=== PATIENT | male | born 1940 | race Two or more races ===

== ENCOUNTER 2017-05-20 11:16 | Day surgery (SDC) | payer OTHER ==
[~2017-05-20 11:16] MED LIST: Acetaminophen TAB* 325 MG PO PRN; Buffered Lidocaine 0.9% SYRIN* 5 ML/SYR SYRINGE INTRADERM ONE
[2017-05-20] MEDS ORDERED: Midazolam* 1 MG/ML 2 ML VIAL (2 MG) ONE (11:41)
[2017-05-20] MEDS ORDERED: fentaNYL* 50 MCG/ML 2 ML VIAL (100 MCG VIAL) ONE (11:41)
[2017-05-20 12:56] VITALS: BP 144/84
[2017-05-20] MEDS ORDERED: Neomycin/Polymy/Dex OPHTH.OIN* 3.5 GM ONE (13:58)
[2017-05-20] MEDS ORDERED: Phenylephrine 2.5% OPTH.SOL* 2 ML BTL ONE (13:58)
[2017-05-20] MEDS ORDERED: Tropicamide 1% OPTH.SOL* BTL ONE (13:58)
[2017-05-20] MEDS ORDERED: Tetracaine 0.5% OPTH.SOL 4 ML* 1 DROP BTL ONE (13:58)
[2017-05-20] MEDS ORDERED: Lidocaine 1% MPF* 2 ML VIAL ONE (13:58)
[2017-05-20] MEDS ORDERED: Cyclopentolate 1% OPTH.SOL* 2 ML BTL ONE (13:58)
[2017-05-20] MEDS ORDERED: Ketorolac 0.5% OPHTH (NF) 0.5 % 5 ML BTL ONE (13:59)
--- NOTE | 2017-05-21 03:50 | OP ---
DATE OF OPERATION: 05/20/17 - [facility] DATE OF : 44 SURGEON: Wesley Quinonez MD. SERVICE RIG OPERATOR: None. ANESTHESIA: Topical with intravenous sedation. PRE-OP DIAGNOSIS: Cataract with astigmatism and glaucoma, left eye. POST-OP DIAGNOSIS: Cataract with astigmatism and glaucoma, left eye. OPERATIVE PROCEDURE: Phacoemulsification cataract extraction with posterior chamber toric intraocular lens implant and iStent implant left eye. COMPLICATIONS: None. BLOOD LOSS: None. DESCRIPTION OF PROCEDURE: The patient was seen preoperatively in the holding area where he was placed in an upright position. A sandra was made at the 6 o' clock position of the limbus of the left eye using a marking pen. The patient was subsequently brought to the operating room where he received a small amount of intravenous sedation and a drop of tetracaine to the left eye. The patient was prepped and draped in usual sterile fashion for ophthalmic surgery, and attention was directed to the left eye where a speculum was placed. A paracentesis was created at the 5 o'clock position; 0.1 cc of 1% preservative- free lidocaine was injected into the anterior chamber followed by DisCoVisc. The eye was digitally stabilized while a 2.75 mm keratome was used to create a triplanar clear corneal incision at the 3 o'clock position. A continuous curvilinear capsulorrhexis was created with a cystotome and Utrata forceps. BSS on a cannula was used to hydrodissect the lens from the capsule. Phacoemulsification was performed in a duzcit-iqo-dhtldbw technique to create four fragments which were removed. Residual cortical material was removed with irrigation and aspiration. Healon was used to inflate the capsular bag. A marking pen and Beauchamp marker were used to sandra the 172 degree axis at the limbus. An SN6AT3 19.5 Diopter toric lens folded and inserted into the capsular bag. A Sinskey hook was used to rotate the lens to the appropriate axial alignment. The Sinskey hook removed. DisCoVisc was then layered anterior to the lens to deepen the anterior chamber. DisCoVisc was also placed on the surface of the cornea. The patient's head was rotated away from the surgeon and microscope was rotated towards the surgeon. A gonioprism was placed on the surface of the eye. An iStent on its railroad signal and switch operator was introduced into the anterior chamber. Under direct visualization, the iStent was inserted atraumatically into the trabecular meshwork of the nasal aspect of the left eye. Small amount of blood reflex was produced. The iStent railroad signal and switch operator was removed. The gonioprism was removed. The patient's head and the microscope were returned to a neutral position. The Sinskey hook was introduced to the paracentesis to stabilize the intraocular lens. Irrigation and aspiration were performed to remove all viscoelastic from the eye. The Sinskey hook was removed. BSS on a cannula was used to hydrate the corneal stroma and seal the wound. At the end of the case, the pupil was round. The lens was centered, stable, and axially aligned. The iStent was in place. The eye pressure appeared normal and the wound was watertight. The speculum was removed. Topical Maxitrol ointment was placed on the surface of the eye. The eye was closed, patched and shielded, and the patient was sent to recovery room in stable condition with postop instructions and followup appointment given. [id number]/[facility] #: [id number] SHILPI
== END 2017-05-20 13:13 | disposition home or self-care (01) ==
LOC: OREAST 11:16
PROVIDERS: ATTEND Ophthalmology
DX: H25.12 Age-related nuclear cataract, left eye (principal); H40.10X1 Unspecified open-angle glaucoma, mild stage; E78.2 Mixed hyperlipidemia; Z85.46 Personal history of malignant neoplasm of prostate; M19.90 Unspecified osteoarthritis, unspecified site; J30.2 Other seasonal allergic rhinitis
CPT/HCPCS: A9270-GY; C1783; J2250; J3010; V2787

== ENCOUNTER 2017-05-27 08:13 | Day surgery (SDC) | payer OTHER ==
[2017-05-27] MEDS ORDERED: Tropicamide 1% OPTH.SOL* BTL ONE (08:21)
[2017-05-27] MEDS ORDERED: Ketorolac 0.5% OPHTH (NF) 0.5 % 5 ML BTL ONE (08:21)
[2017-05-27] MEDS ORDERED: Tetracaine 0.5% OPTH.SOL 4 ML* 1 DROP BTL ONE (08:21)
[2017-05-27] MEDS ORDERED: Neomycin/Polymy/Dex OPHTH.OIN* 3.5 GM ONE (08:21)
[2017-05-27] MEDS ORDERED: Lidocaine 1% MPF* 2 ML VIAL ONE (08:21)
[2017-05-27] MEDS ORDERED: Phenylephrine 2.5% OPTH.SOL* 2 ML BTL ONE (08:21)
[2017-05-27] MEDS ORDERED: Cyclopentolate 1% OPTH.SOL* 2 ML BTL ONE (08:21)
[2017-05-27] MEDS ORDERED: fentaNYL* 50 MCG/ML 2 ML VIAL (100 MCG VIAL) ONE (09:05)
[2017-05-27] MEDS ORDERED: Midazolam* 1 MG/ML 2 ML VIAL (2 MG) ONE (09:06)
[2017-05-27] MEDS ORDERED: Propofol* 10 MG/ML 20 ML BTL IV PUSH ONE (09:43)
[2017-05-27 10:15] VITALS: BP 141/91
--- NOTE | 2017-05-27 23:35 | OP ---
DATE OF OPERATION: 05/27/17 - [facility] DATE OF : 44 SURGEON: Wesley Quinonez MD PROCESS TANK TENDER: None. ANESTHESIA: Topical with intravenous sedation. PRE-OP DIAGNOSIS: Cataract, astigmatism and glaucoma, right eye. POST-OP DIAGNOSIS: Cataract, astigmatism and glaucoma, right eye. OPERATIVE PROCEDURE: Phacoemulsification and cataract extraction with posterior chamber toric intraocular lens implant and iStent implant right eye. COMPLICATIONS: None. ESTIMATED BLOOD LOSS: None. DESCRIPTION OF PROCEDURE: The patient was seen preoperatively in the holding area where a sandra was made at the 6 o'clock position of the limbus of the right eye while the patient was in an upright position. The patient was subsequently brought to the operating room where he was given a small amount of intravenous sedation. A drop of tetracaine was applied to his right eye. He was prepped and draped in the usual sterile fashion for ophthalmic surgery and attention was directed to the right eye, where a speculum was placed. A paracentesis was created at the 11 o'clock position and 0.1 cc of 1% preservative-free lidocaine was injected into the anterior chamber followed by DisCoVisc. The eye was digitally stabilized while a 2.75-mm keratome was used to create a triplanar clear corneal incision at the 9 o'clock position. A continuous curvilinear capsulorrhexis was created with a cystotome and Utrata forceps. BSS on a cannula was used to hydrodissect the lens from the capsule. Phacoemulsification was performed in a deeuya-yxp-ihumflu technique to create 4 fragments, which were removed. Residual cortical material was removed with irrigation and aspiration. Healon was used to inflate the capsular bag. An SN6AT3 19.0 diopter lens was loaded into the cartridge. A Beauchamp marker and marking pen was used to sandra the 165 degree axis of the corneal limbus. The lens was then introduced into the capsular bag and rotated to the proper axial alignment using a Sinskey hook. DisCoVisc was introduced into the anterior chamber to deepen it. DisCoVisc was also placed on the corneal surface. The patient's head was rotated away from the surgeon and the microscope was rotated towards the surgeon. A gonioprism was placed on the surface of the eye. An iStent was introduced into the anterior chamber and, under direct visualization, was placed into the trabecular meshwork nasally. The iStent furniture mover and the gonioprism were removed. The patient's head and the microscope were returned to a neutral position. A Sinskey hook was reintroduced into the anterior chamber through the paracentesis to stabilize the lens. Irrigation and aspiration were performed to remove viscoelastic from the eye. The Sinskey hook was removed. BSS on a cannula was used to hydrate the corneal stroma and seal the wound. At the end of the case, the pupil was round. The lens was centered, stable, and axially aligned. The iStent was in place. The eye pressure appeared normal and the wound was watertight. The speculum was removed and topical Maxitrol ointment was placed on the surface of the eye. The eye was closed, patched and shielded, and the patient was sent to recovery room in stable condition with postoperative instructions and followup appointment given. [id number]/[facility] #: [id number] SHILPI
== END 2017-05-27 10:30 | disposition home or self-care (01) ==
LOC: OREAST 08:13
PROVIDERS: ATTEND Ophthalmology
DX: H25.11 Age-related nuclear cataract, right eye (principal); H40.89 Other specified glaucoma; E78.2 Mixed hyperlipidemia; M19.90 Unspecified osteoarthritis, unspecified site; J30.2 Other seasonal allergic rhinitis
CPT/HCPCS: A9270-GY; C1783; J2250; J2704; J3010; V2787